=== PATIENT | male | born 1940 | race Caucasian/White ===

== ENCOUNTER → 2016-12-04 | Outpatient (CLI) | payer OTHER ==
[~2016-12-04] MED LIST: ADVIL200 MG PO; ASPIR 8181 MG PO; CELEBREX 200MG200 MG PO; LESCOL XL80 MG PO; LOSARTAN POTAS100 MG PO; NORCO 7.5-3251 EACH PO; XARELTO10 MG PO
[2016-12-04 14:07] LABS: HEMOGLOBIN 15.4 gm/dl (14.0-17.5); RED BLOOD COUNT 5.09 M/UL (4.20-5.50); WHITE BLOOD COUNT 5.9 K/UL (4.5-11.0)
== END ==
LOC: OPSV2 13:00
PROVIDERS: Orthopaedic Surgery
DX: Z01.810 Encounter for preprocedural cardiovascular examination (principal); Z01.812 Encounter for preprocedural laboratory examination; Z01.818 Encounter for other preprocedural examination; M17.32 Unilateral post-traumatic osteoarthritis, left knee; I10 Essential (primary) hypertension; I25.10 Atherosclerotic heart disease of native coronary artery without angina pectoris; Z88.3 Allergy status to other anti-infective agents
CPT/HCPCS: 36415; 71020; 80048; 85025; 87081; 93005

== ENCOUNTER 2016-12-17 07:45 | Inpatient (IN) | payer OTHER ==
[~2016-12-17] VITALS: Ht 185.4 cm; Wt 104.3 kg
[2016-12-17] MEDS ORDERED: LESCOL XL80 MG PO (09:24)
[2016-12-17] MEDS ORDERED: CELEBREX 200MG200 MG PO (09:24)
[2016-12-17] MEDS ORDERED: LOSARTAN POTAS100 MG PO (09:25)
[2016-12-17] MEDS ORDERED: ADVIL200 MG PO (09:26)
[2016-12-17] MEDS ORDERED: ASPIR 8181 MG PO (09:27)
[2016-12-19 06:19] LABS: HEMOGLOBIN 12.3 gm/dl (14.0-17.5); RED BLOOD COUNT 4.13 M/UL (4.20-5.50); WHITE BLOOD COUNT 9.6 K/UL (4.5-11.0)
[2016-12-19 06:22] LABS: BUN/CREATININE RATIO 29 (0-10)
[2016-12-20 06:04] LABS: HEMOGLOBIN 11.8 gm/dl (14.0-17.5); RED BLOOD COUNT 3.92 M/UL (4.20-5.50); WHITE BLOOD COUNT 10.7 K/UL (4.5-11.0)
[2016-12-20 06:23] LABS: BUN/CREATININE RATIO 24 (0-10)
[2016-12-20] MEDS ORDERED: NORCO 7.5-3251 EACH PO (16:09)
[2016-12-20] MEDS ORDERED: XARELTO10 MG PO (16:09)
== END 2016-12-20 18:15 | disposition home health service (06) | DRG 470 ==
LOC: ZOBSOF 12-18 07:01 → M/S 12-18 14:26
PROVIDERS: ADMIT Orthopaedic Surgery
PROC: 0SRD0J9 Replacement of Left Knee Joint with Synthetic Substitute, Cemented, Open Approach (ICD-10-PCS; principal; 2016-12-18 14:30)
PROC: 3E0U33Z Introduction of Anti-inflammatory into Joints, Percutaneous Approach (ICD-10-PCS; 2016-12-20)
PROC: 3E0U3BZ Introduction of Anesthetic Agent into Joints, Percutaneous Approach (ICD-10-PCS; 2016-12-20)
DX: M17.12 Unilateral primary osteoarthritis, left knee (principal); D62 Acute posthemorrhagic anemia; M17.31 Unilateral post-traumatic osteoarthritis, right knee; M11.262 Other chondrocalcinosis, left knee; M25.762 Osteophyte, left knee; M23.42 Loose body in knee, left knee; R00.1 Bradycardia, unspecified; I25.10 Atherosclerotic heart disease of native coronary artery without angina pectoris; I10 Essential (primary) hypertension; E78.5 Hyperlipidemia, unspecified; G89.29 Other chronic pain; Z95.1 Presence of aortocoronary bypass graft; Z98.61 Coronary angioplasty status; Z86.718 Personal history of other venous thrombosis and embolism; Z85.46 Personal history of malignant neoplasm of prostate; Z87.891 Personal history of nicotine dependence; Z79.82 Long term (current) use of aspirin; Z79.1 Long term (current) use of non-steroidal anti-inflammatories (NSAID); Z79.899 Other long term (current) drug therapy; Z88.3 Allergy status to other anti-infective agents; Z90.49 Acquired absence of other specified parts of digestive tract; Z98.890 Other specified postprocedural states
CPT/HCPCS: 36415; 73560; 80048; 80051; 82565; 84520; 85025; 86850; 86900; 86901; 93005; 97110; 97116; 97530; 97535; C1776; J0171; J0690; J0735; J1885; J2270; J2274; J2550; J2795; J3301; J7050; J7120

== ENCOUNTER 2017-01-24 07:03 | Inpatient (IN) | payer OTHER ==
[~2017-01-24] VITALS: Ht 185.4 cm; Wt 113.4 kg
[2017-01-24 07:58] LABS: RED BLOOD COUNT 4.59 M/UL (4.20-5.50); WHITE BLOOD COUNT 6.7 K/UL (4.5-11.0)
[2017-01-24 08:03] LABS: BUN/CREATININE RATIO 25 (0-10)
== END 2017-01-24 12:00 | disposition short-term general hospital (02) | DRG 176 ==
LOC: ER1 07:03 → ZEROF 09:40 → CCU 11:42
PROVIDERS: Emergency Medicine; ADMIT Emergency Medicine
DX: I26.92 Saddle embolus of pulmonary artery without acute cor pulmonale (principal); I27.2 Other secondary pulmonary hypertension; I49.8 Other specified cardiac arrhythmias; R09.02 Hypoxemia; R77.8 Other specified abnormalities of plasma proteins; I25.10 Atherosclerotic heart disease of native coronary artery without angina pectoris; I10 Essential (primary) hypertension; E78.5 Hyperlipidemia, unspecified; M19.90 Unspecified osteoarthritis, unspecified site; Z86.718 Personal history of other venous thrombosis and embolism; Z88.3 Allergy status to other anti-infective agents; Z79.82 Long term (current) use of aspirin; Z79.899 Other long term (current) drug therapy; Z96.652 Presence of left artificial knee joint; Z96.1 Presence of intraocular lens; Z95.5 Presence of coronary angioplasty implant and graft; Z95.1 Presence of aortocoronary bypass graft; Z85.46 Personal history of malignant neoplasm of prostate; Z87.891 Personal history of nicotine dependence; Z79.02 Long term (current) use of antithrombotics/antiplatelets
CPT/HCPCS: 36415; 36600; 71010; 80053; 81001; 82550; 82553; 82803; 83605; 83874; 83880; 84484; 85025; 85379; 85610; 85730; 93005; 94664; 96360; 99291; J1644; J2997; J7050; Q9963

== ENCOUNTER → 2021-09-04 | Outpatient (CLI) | payer OTHER ==
[~2021-09-04] VITALS: Ht 185.4 cm; Wt 99.8 kg
[~2021-09-04] MED LIST changes: +TYLENOL 500 MG500 MG PO
[2021-09-04 16:47] LABS: BUN/CREATININE RATIO 21 (0-10)
[2021-09-07 01:10] LABS: TANDEM-R OSTASE 27.1 ug/L (7.6-24.4)
== END ==
LOC: OPSV 15:00
PROVIDERS: Physician Assistant Medical
DX: M81.0 Age-related osteoporosis without current pathological fracture (principal)
CPT/HCPCS: 80053; 80069; 84080; 84100; 96372

== ENCOUNTER → 2021-10-08 | Outpatient (CLI) | payer OTHER | LOC: HEART 5 10-04 09:15 | DX: I25.10 Atherosclerotic heart disease of native coronary artery without angina pectoris (principal); Z95.1 Presence of aortocoronary bypass graft | CPT/HCPCS: 78452; A9502; J2785 ==

== ENCOUNTER → 2022-03-21 | Outpatient (CLI) | payer OTHER | LOC: OPSV 14:00 | DX: M81.0 Age-related osteoporosis without current pathological fracture (principal) | CPT/HCPCS: 96372 ==